=== PATIENT | female | born 1995 | race American Indian/Alaskan Native ===

== ENCOUNTER 2019-02-21 14:37 | Outpatient (CLI) | payer MEDICAID ==
[2019-02-21 16:00] LABS: Bacteria,Urine 1+ /HPF (Negative); Bilirubin,Urine NEG (Negative); Blood,Urine NEG (Negative); Color,Urine Yellow (Yellow); Mucus,Urine 1+ /HPF; Protein,Urine <15 mg/dL mg/dL (Negative)
[2019-02-21 16:19] VITALS: BP 106/57
--- NOTE | 2019-02-21 16:21 | Event Note ---
Date: 02/21/19 23 y.o. IUP at 34w3d presents to triage with c/o pelvic pressure and ankle swelling. 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 Patient denies VB or LOF. +FM. Patient's assigned OB is Dr. Denny at [facility], hx of all without complications in or delivery per patient. VSS. Patient agrees to discharge home and f/u with assigned OB provider. Labor precautions and [facility] education provided.
[2019-02-21 17:09] LABS: Amphetamine Screen,Urine PRESUMPTIVE NEGATIVE; Benzodiazepines Screen,Urine PRESUMPTIVE NEGATIVE; Cannabinoid Screen,Urine PRESUMPTIVE NEGATIVE; Cocaine Screen,Urine PRESUMPTIVE NEGATIVE; Methadone Screen,Urine PRESUMPTIVE NEGATIVE; Opiate Screen,Urine PRESUMPTIVE NEGATIVE
== END 2019-02-21 16:36 | disposition home or self-care (01) ==
LOC: TRG 14:37
PROVIDERS: ATTEND Obstetrics & Gynecology
DX: O47.03 False labor before 37 completed weeks of gestation, third trimester (principal); O24.419 Gestational diabetes mellitus in pregnancy, unspecified control; Z3A.33 33 weeks gestation of pregnancy
CPT/HCPCS: 80307; 81001